=== PATIENT | male | born 1990 | race Caucasian/White ===

== ENCOUNTER 2022-01-09 09:41 | Emergency (ER) | payer MEDICAID ==
[~2022-01-09] VITALS: Ht 180.3 cm; Wt 76.8 kg
[2022-01-09] MEDS ORDERED: TRAZODONE HCL50 MG PO (10:40)
[2022-01-09] MEDS ORDERED: DOXYCYCLINE HY100 MG PO (11:24)
== END 2022-01-09 11:32 | disposition home or self-care (01) ==
LOC: ED 09:41
DX: R30.0 Dysuria (principal); Z79.899 Other long term (current) drug therapy
CPT/HCPCS: 81001; 87491; 96372; 99283; J0696